=== PATIENT | female | born 1975 | race African-American/Black ===

== ENCOUNTER 2016-12-15 22:31 | Inpatient (IN) | payer OTHER ==
[~2016-12-15] VITALS: Ht 160 cm; Wt 79.4 kg
--- NOTE | ~2016-12-15 | EKG ---
[address] [place] [employer] [address] ELECTROCARDIOGRAM REPORT [facility] Room #: 212-P ADM IN M.R.#: [id number] Admission: 12/16/16 Attend Phys: Jerad Newton MD Discharge: Date of : 71 Report #: [id number] THIS REPORT FOR: //name// [facility] ED Test Date: 2016-12-15 Test Time: 22:33:04 Pat Name: [facility] Department: Room: [facility] [place][note 2] Gender: F Counsellors: SHARRON : 1975 Requested By: Yessica Keller Order Number: [id number] MD: Dimas Lindsey Measurements Intervals [place] Rate: 93 P: 67 DE: 138 QRS: 36 QRSD: 77 T: 29 QT: 339 QTc: 422 Interpretive Statements Sinus arrhythmia No significant abnormality Compared to ECG 10/06/2016 00:10:07 No significant change was found Electronically Signed On 12-16-2016 8:45:06 CDT by Dimas Lindsey [email or web address] <ELECTRONICALLY SIGNED> By: Dimas Lindsey MD, [facility] 12/16/16 0845 32 32 Dimas Lindsey MD, [facility] /EPI
--- NOTE | ~2016-12-15 | D ---
[facility] [place] [address] DISCHARGE SUMMARY Name: ZITA PHILIPPE Room #: 212-P ADM IN M.R.#: [id number] Admission: 12/16/16 Attend Phys: Jerad Newton MD Discharge: Date of : 71 Report #: [id number] THIS REPORT FOR: //name// CC: ANT physician/PCP Jerad Newton DATE OF SERVICE: 12/17/2016 DISCHARGE DIAGNOSES: 1. Chest pain and shoulder pain secondary to previous injury. 2. History of gastroesophageal reflux disease. 3. Recent hysterectomy. CONSULTS: Cardiology. PROCEDURES: She had a Lexiscan done that was low risk for ischemia. HOSPITAL COURSE: The patient is a 41-year-old female with very little past medical history, presented to the ER secondary to left-sided chest pain. Please see details of admission dictated by Dr. Jerad Newton . The patient indicates that she has had this pain since October at which time she was at [facility] and was dropped from her bed in the process of a transfer. She indicates she has had multiple testing and studies done including an MRI. Her main concern is that she thought she was having a heart attack and came in. She had a Lexiscan done with low risk for ischemia. She had ongoing pain and wanted to have cardiology see her. Cardiology also felt that she does not have any cardiac etiology for her chest pain. I recommended that she follow up with her primary care doctor immediately and see ortho outpatient. On exam, her chest pain is reproducible and she indicates that with moving her arm, she has shoulder pain. Otherwise, she denies any other complaints. Nurses report no other problems. DISCHARGE DISPOSITION: To home. DISCHARGE PHYSICAL EXAMINATION: VITAL SIGNS: Temperature 98, pulse 63, blood pressure 131/72, O2 sat 100% on room air. GENERAL: She is awake, alert, answering questions appropriately, in no acute respiratory distress. HEENT: Normocephalic, atraumatic. NECK: Supple. CARDIOVASCULAR: Regular rate and rhythm, no murmurs. She has got reproducible left upper chest pain. No bruising or deformity of her shoulder. LUNGS: Clear to auscultation bilaterally. No crackles or wheeze. ABDOMEN: Soft, no distention or tenderness. EXTREMITIES: No edema. [address] [address] DISCHARGE SUMMARY Name: [facility] Room #: [address] [place] [address] IN M.R.#: [id number] Admission: 12/16/16 Attend Phys: Jerad Newton MD Discharge: Date of : 71 Report #: [id number] NEUROLOGIC: Nonfocal. DISCHARGE MEDICATIONS: She will resume her previous med which is ranitidine at its previous dose. DIET: Regular diet. ACTIVITY: As tolerated. FOLLOWUP: With primary care and possible ortho and eval in a week and to seek immediate medical attention if symptoms worsen or recur or if she has any other significant medical concerns. By: 1145 1230 Ghislaine Chamberlain MD /carley
--- NOTE | ~2016-12-15 | H ---
[facility] [place] [address] HISTORY AND PHYSICAL Name: ZITA PHILIPPE Room #: 212-P ADM IN M.R.#: [id number] Admission: 12/16/16 Attend Phys: Jerad Newton MD Discharge: Date of : 71 Report #: [id number] THIS REPORT FOR: //name// CC: ANT physician/PCP Jerad Newton Primary Care Physician DATE OF SERVICE: 12/16/2016 The patient is admitted on 12/16/2016. CHIEF COMPLAINT: Left-sided chest pain. HISTORY OF PRESENT ILLNESS: This patient is a 41-year-old female. She has had these symptoms start about end of October and she was dropped from the table after the surgery that was in [facility]. She said she has off and on pain, but in the last couple of days, since Thursday, the pain got worse. She has it more in the left upper extremity and chest pain which is pretty much all the time there. She came to the emergency room. She has no history of coronary artery disease. No other therapy or DVT. A repeat CT chest was done in the ER, PE protocol. No PE and her cardiac enzymes have been negative now. The patient's pain described 8/10. No headache. No focal weakness or anything like that. The patient is scheduled for stress test today. PAST MEDICAL HISTORY: She has bronchitis, GERD, EGD in the past and tubal ligation. MEDICATIONS: She is on Norflex. ALLERGIES: IBUPROFEN caused GI upset. SOCIAL HISTORY: No alcohol, no drugs, but she is a smoker and admits to smoking. PAST SURGICAL HISTORY: She had a tubal ligation. REVIEW OF SYSTEMS: I reviewed all the review of systems. They are discussed in the HPI. They were reviewed as negative. Specifically, no eye pain, visual changes or anything. No cough, congestion or fever. No focal weakness. No change in mental status. She denied any abdominal pain, nausea or vomiting. No burning pain on urination with anything hematuria. No rashes. Denied any history of diabetes or thyroid problem. specifically, what she describes this pain is in more left upper extremity. She has had pain and then sometimes, she starts feeling more like a heaviness, but no numbness or tingling or anything like that. No motor weakness or anything like that. Chest pain, what she described, is more on the left chest area, which is pretty much all the [facility] [address] [place] [address] HISTORY AND PHYSICAL Name: ZITA PHILIPPE Room #: 212-P ADM IN [facility].#: [id number] Admission: 12/16/16 Attend Phys: Jerad Newton MD Discharge: Date of : 71 Report #: [id number] time now. Rest of review of systems as described in the HPI. They were reviewed as negative. PHYSICAL EXAMINATION: VITAL SIGNS: Stable. She is afebrile. Pulse 50, respiratory rate 18, blood pressure 109/71 and O2 sat 100% on room air. GENERAL: On exam, she is awake, alert and not in distress. HEENT: Pupils equally round and reactive to light. Extraocular muscles intact. No nystagmus. No pallor, no jaundice. CHEST: Clear. Around the chest area, pain is reproducible with palpation. CARDIOVASCULAR: S1, S2. ABDOMEN: Soft. Bowel sounds present. EXTREMITIES: No edema. NEUROLOGIC: No focal weakness. In the upper extremities, she had tariff clerk equal and symmetrical. On the left shoulder area, she had a good range of motion completely and there is really no focal tenderness or anything like that. SKIN: No rash or cellulitis. No abscess or anything like that. NEUROLOGIC: No focal weakness. LABORATORY DATA: Labs were done in the ER today. CBC: White count 4.4, H and H of 12.9 and 38.5 and platelets 200,000. Chemistry: Sodium 137, potassium 3.5, chloride 102, bicarbonate 26, BUN 5, creatinine 0.8 and glucose 109. AST and ALT are 15 and 23 and alkaline phosphatase is 54. Troponin 0.04 and 0.04, two sets negative. Albumin 4.0. Total protein 8.3. D-dimer was positive. CT angio was done in the ER, which was negative for PE or anything. ASSESSMENT: 1. Chest pain and left upper extremity pain, noncardiac, suggested by history, all that. No PE- CTA - Negative will fu Stress test, we will follow up on that. I do not think there is any fracture or any other shoulder pathologies there. She has good range of motion and no really tender spot. She will followup with a stress test. 2. Tobaccoism. Discussed smoking cessation. PLAN: We will keep under tele area and if the pain still persists, we will get MRI on the shoulder also and try oxycodone for pain. <ELECTRONICALLY SIGNED> By: Jerad Newton MD 12/17/16 0812 1024 1137 Jerad Newton MD /nt
[2016-12-15 22:31] VITALS: BP 157/99
[~2016-12-15 22:31] MED LIST: ACYCLOVIR 200200 MG PO; ALBUTEROL INHAL17 GM IH; AMOXICILLIN 50500 M1 PO; AZITHROMYCIN 2250 MG PO; BUTALB-APAP-CA1 EACH PO; CARAFATE1 GM/10 ML PO; CIPROFLOXACIN500 M1 PO; DARVOCET-N 1001 EACH PO; FLAGYL500 MG PO; FLEXERIL PO; MEDROLDOSEPACK PO; NAPROSYN500 MG PO; NOHOMEMEDICATIONS; NORCO 5-325 TA1 EACH PO; NORFLEX100 MG PO; ONDANSETRON HCL4 M2; ONDANSETRON HCL4 M2 PO; PERCOCET 5-3251 EACH PO; PRILOSEC40 MG PO; PYRIDIUM200 MG PO; RANITIDINE 150150 M1 PO; SERTRALINE HCL50 MG PO; TRAMADOL 50 MG50 MG; TRAMADOL 50 MG50 MG PO; ZANTAC 150MG T150 M1 PO; ZANTAC 150MG T150 MG PO; ZOFRAN ODT4 MG PO; ZOFRAN4 MG PO; ZOLOFT100 MG PO
[2016-12-15] MEDS ORDERED: ZANTAC 150MG T150 MG PO (22:32)
[2016-12-15 23:17] LABS: ABSOLUTE NEUTROPHILS 1.6 thou/uL (1.4-8.2); BASOPHILS 1.4 % (0.0-2.0); EOSINOPHILS 1.2 % (0.0-3.0); HEMATOCRIT 38.5 % (37.0-47.0); HEMOGLOBIN 12.9 gm/dL (12.0-15.0); LYMPHOCYTES 55.5 % (24.0-44.0); MCH 28.2 pg (26.0-34.0); MCHC 33.6 g/dL (28.0-37.0); MONOCYTES 6.6 % (1.0-8.0); PLATELET COUNT 200 thou/uL (150-400); POLYS 35.3 % (36.0-66.0); RBC 4.59 mil/uL (4.20-5.00); WBC 4.4 thou/uL (4.0-11.0)
[2016-12-15 23:31] LABS: ANION GAP 9 mmol/L (7-16); BUN 5 mg/dL (7-18); CALCIUM 8.6 mg/dL (8.5-10.1); CHLORIDE 102 mmol/L (98-107); CO2 26 mmol/L (21-32); CREATININE 0.8 mg/dL (0.6-1.0); GLUCOSE 109 mg/dL (74-106); POTASSIUM 3.5 mmol/L (3.5-5.1); SODIUM 137 mmol/L (136-145)
[2016-12-15 23:33] LABS: MANUAL DIFF NO
[2016-12-15 23:37] LABS: APTT 25.1 Seconds (24.5-32.8); PROTIME 10.5 Seconds (9.3-11.4)
[2016-12-15 23:41] LABS: ALKALINE PHOSPHATASE 54 U/L (46-116); NT-PRO BRAIN NAT PEPTIDE 83 pg/mL (<300); SGOT 15 U/L (15-37); SGPT 23 U/L (30-65); TOTAL BILIRUBIN 0.3 mg/dL (<0.1-1.0); TOTAL PROTEIN 8.3 g/dL (6.4-8.2); TROPONIN-I < 0.04 ng/mL (<0.04-0.07)
[2016-12-16 01:25] VITALS: BP 124/70
[2016-12-16 04:00] VITALS: BP 109/71
[2016-12-16 08:49] VITALS: BP 114/71
[2016-12-16 16:26] VITALS: BP 150/88
[2016-12-16 20:15] VITALS: BP 136/83
[2016-12-16 23:20] VITALS: BP 123/77; BP 139/64
[2016-12-17 03:30] VITALS: BP 112/55
[2016-12-17 07:00] VITALS: BP 122/76
[2016-12-17 11:39] VITALS: BP 131/72
[2016-12-17 12:17] VITALS: BP 131/72
== END 2016-12-17 14:15 | disposition home or self-care (01) | DRG 313 ==
LOC: ER 22:31 → EROBS 12-16 01:20 → 2N 12-16 01:20
PROVIDERS: Emergency Medicine
DX: R07.89 Other chest pain (principal); M25.512 Pain in left shoulder; K21.9 Gastro-esophageal reflux disease without esophagitis; F17.210 Nicotine dependence, cigarettes, uncomplicated; F12.90 Cannabis use, unspecified, uncomplicated; W18.39XD Other fall on same level, subsequent encounter; Z71.6 Tobacco abuse counseling; Z90.710 Acquired absence of both cervix and uterus; Z88.6 Allergy status to analgesic agent; Z79.899 Other long term (current) drug therapy
CPT/HCPCS: 10081

== ENCOUNTER 2017-06-09 22:49 | Emergency (ER) | payer OTHER ==
[~2017-06-09] VITALS: Ht 160 cm; Wt 78.5 kg
--- NOTE | ~2017-06-09 | EKG ---
[address] [address] ELECTROCARDIOGRAM [facility]PORT [facility] Room #: DEP Reynaldo#: [id number] Admission: 06/09/17 Attend Phys: Discharge: 06/10/17 Date of : 71 Report #: [id number] THIS REPORT FOR: //name// [facility] ED Test Date: 2017-06-10 Test Time: 01:26:47 Pat Name: [facility] Department: Room: Gender: F Medical Technologist Chemistry: CLAUDE : 1975 Requested By: Arnulfo Richardson Order Number: [id number] MD: Dwight Calderon Measurements Intervals [place] Rate: 51 P: 35 NM: 151 QRS: 42 QRSD: 122 T: 45 QT: 427 QTc: 394 Interpretive Statements Sinus rhythm Electronically Signed On 06-10-2017 20:09:49 CDT by Dwight Calderon [email or web address] <ELECTRONICALLY SIGNED> By: Dwight Calderon MD 06/10/172008 0126 0126 Dwight Calderon MD /EPI
[2017-06-09] MEDS ORDERED: ZANAFLEX4 MG PO (23:07)
[2017-06-09] MEDS ORDERED: PREDNISONE 20 M20 MG PO (23:08)
[2017-06-09 23:34] LABS: URINE BILIRUBIN NEGATIVE (Negative); URINE BLOOD NEGATIVE (Negative); URINE COLOR YELLOW; URINE GLUCOSE-RANDOM* NEGATIVE (Negative); URINE KETONES NEGATIVE (Negative); URINE LEUKOCYTES-REFLEX NEGATIVE (Negative); URINE PROTEIN (DIPSTICK) NEGATIVE (Negative); URINE SPECIFIC GRAVITY 1.015 (1.003-1.035); URINE UROBILINOGEN 0.2 E.U./dl (0.2-1.0)
[2017-06-09 23:47] LABS: HEMOGLOBIN 12.5 gm/dL (12.0-15.0); MCH 29.1 pg (26.0-34.0); MCHC 33.9 g/dL (28.0-37.0); MCV 85.8 fL (80.0-100.0); RBC 4.31 mil/uL (4.20-5.00); RDW 14.6 % (10.5-14.5); WBC 4.8 thou/uL (4.0-11.0)
[2017-06-10 00:07] LABS: ANION GAP 5 mmol/L (7-16); BUN 13 mg/dL (7-18); CALCIUM 9.1 mg/dL (8.5-10.1); CHLORIDE 103 mmol/L (98-107); CO2 30 mmol/L (21-32); CREATININE 0.9 mg/dL (0.6-1.0); GLUCOSE 143 mg/dL (74-106); SODIUM 138 mmol/L (136-145)
[2017-06-10 00:12] LABS: ALBUMIN 3.7 g/dL (3.4-5.0); ALKALINE PHOSPHATASE 62 U/L (46-116); SGOT 7 U/L (15-37); SGPT 14 U/L (30-65); TOTAL BILIRUBIN < 0.1 mg/dL (<0.1-1.0); TOTAL PROTEIN 7.2 g/dL (6.4-8.2)
== END 2017-06-10 02:30 | disposition home or self-care (01) ==
LOC: ER 22:49
PROVIDERS: Emergency Medicine
DX: R10.13 Epigastric pain (principal); K21.9 Gastro-esophageal reflux disease without esophagitis; F10.99 Alcohol use, unspecified with unspecified alcohol-induced disorder; Z87.09 Personal history of other diseases of the respiratory system; Z90.711 Acquired absence of uterus with remaining cervical stump; Z88.6 Allergy status to analgesic agent

== ENCOUNTER 2017-06-30 21:05 | Emergency (ER) | payer OTHER ==
[~2017-06-30] VITALS: Ht 160 cm; Wt 78.0 kg
--- NOTE | ~2017-06-30 | EKG ---
[address] [address] ELECTROCARDIOGRAM [facility]PORT 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 Law Instructor: CLAUDE : 1975 Requested By: David Rojo Order Number: [id number] MD: Dwight Calderon Measurements Intervals [place] Rate: 60 P: 23 TN: 163 QRS: 31 QRSD: 85 T: 38 QT: 411 QTc: 411 Interpretive Statements Sinus rhythm ST elev, probable normal early repol pattern Compared to ECG 06/10/2017 01:26:47 ST (T wave) deviation now present Electronically Signed On 07-01-2017 7:31:42 CDT by Dwight Calderon [email or web address] <ELECTRONICALLY SIGNED> By: Dwight Calderon MD 07/01/17 0731 12 12 Dwight Calderon MD /OMEGA
[~2017-06-30 21:05] MED LIST changes: +PREDNISONE 20 M20 MG PO; +ZANAFLEX4 MG PO
== END 2017-06-30 23:10 | disposition home or self-care (01) ==
LOC: ER 21:05
DX: R07.89 Other chest pain (principal); R68.83 Chills (without fever); R07.0 Pain in throat; K21.9 Gastro-esophageal reflux disease without esophagitis; Z90.711 Acquired absence of uterus with remaining cervical stump; Z88.6 Allergy status to analgesic agent; Z87.891 Personal history of nicotine dependence

== ENCOUNTER 2018-06-13 13:05 | Emergency (ER) | payer OTHER ==
[~2018-06-13] VITALS: Ht 160 cm; Wt 95.3 kg
[2018-06-13] MEDS ORDERED: TRAZODONE HCL100 MG PO (13:34)
[2018-06-13] MEDS ORDERED: NEURONTIN100 MG PO (13:34)
[2018-06-13] MEDS ORDERED: ZOLOFT100 MG PO (13:34)
[2018-06-13] MEDS ORDERED: PRILOSEC 10MG C10 MG PO (13:35)
[2018-06-13] MEDS ORDERED: TRAMADOL 50 MG50 MG PO (14:23)
== END 2018-06-13 15:05 | disposition home or self-care (01) ==
LOC: ER 13:05
DX: S40.011A Contusion of right shoulder, initial encounter (principal); S20.221A Contusion of right back wall of thorax, initial encounter; S30.0XXA Contusion of lower back and pelvis, initial encounter; S09.90XA Unspecified injury of head, initial encounter; K21.9 Gastro-esophageal reflux disease without esophagitis; Z90.710 Acquired absence of both cervix and uterus; Z87.891 Personal history of nicotine dependence; Z88.6 Allergy status to analgesic agent; W01.0XXA Fall on same level from slipping, tripping and stumbling without subsequent striking against object, initial encounter; Y93.89 Activity, other specified; Y92.89 Other specified places as the place of occurrence of the external cause; Y99.8 Other external cause status

== ENCOUNTER 2018-12-11 23:13 | Emergency (ER) | payer OTHER ==
[~2018-12-11] VITALS: Ht 160 cm; Wt 95.3 kg
[~2018-12-11 23:13] MED LIST changes: +NEURONTIN100 MG PO; +PRILOSEC 10MG C10 MG PO; +TRAZODONE HCL100 MG PO
[2018-12-12 00:36] LABS: ABSOLUTE NEUTROPHILS 2.3 thou/uL (1.4-8.2); BASOPHILS 0.6 % (0.0-2.0); EOSINOPHILS 0.9 % (0.0-3.0); HEMATOCRIT 39.8 % (37.0-47.0); HEMOGLOBIN 13.5 gm/dL (12.0-15.0); LYMPHOCYTES 43.3 % (24.0-44.0); MCH 28.5 pg (26.0-34.0); MCHC 34.1 g/dL (28.0-37.0); MCV 83.7 fL (80.0-100.0); MONOCYTES 9.4 % (1.0-8.0); PLATELET COUNT 211 thou/uL (150-400); POLYS 45.8 % (36.0-66.0); RBC 4.75 mil/uL (4.20-5.00); RDW 14.6 % (10.5-14.5)
[2018-12-12 00:46] LABS: ANION GAP 14 mmol/L (7-16); BUN 10 mg/dL (7-18); CALCIUM 9.4 mg/dL (8.5-10.1); CHLORIDE 100 mmol/L (98-107); CO2 23 mmol/L (21-32); CREATININE 0.8 mg/dL (0.6-1.0); GLUCOSE 105 mg/dL (74-106); POTASSIUM 3.8 mmol/L (3.5-5.1); SODIUM 137 mmol/L (136-145)
[2018-12-12 00:51] LABS: TROPONIN-I <0.06 ng/mL (<0.06)
[2018-12-12] MEDS ORDERED: ULTRAM 50MG TAB50 MG PO (03:54)
[2018-12-12 04:49] VITALS: BP 142/71
--- NOTE | 2018-12-12 23:45 | EKG ---
[place] [address] [facility] [email or web address] [address] ELECTROCARDIOGRAM REPORT [facility] [id number] ������������������ Admission: 12/11/18 ������������������ Attend Phys: Discharge: 12/12/18 ������������������ Date of : 71 Report #: [id number] ����������������������������������������������������������������� [id number] THIS REPORT FOR: //name// [facility] ED Test Date: 2018-12-11 Test Time: 23:27:05 Pat Name: [facility] Department: Room: Gender: F Supervisor Education: KALLIE : 1975 Requested By: Mary Funez Order Number: [id number] MD: Dick Vasquez Measurements Intervals [place] Rate: 71 P: 38 [place]: 143 QRS: 36 QRSD: 82 T: 31 QT: 361 QTc: 393 Interpretive Statements Sinus rhythm left atrial enlargement baseline wander Nonspecific ST/T wave changes Compared to ECG 06/30/2017 22:13:58 ST (T wave) deviation no longer present Electronically Signed On 12-12-2018 23:45:05 CDT by Dick Vasquez [email or web address] ��������������������������������������������� <ELECTRONICALLY SIGNED> ���������������������������������������� By: Dick Vasquez MD ��������������������������������������������� 12/12/18 2345 2327 26 Dick Vasquez MD /EPI
== END 2018-12-12 04:14 | disposition home or self-care (01) ==
LOC: ER 23:13
PROVIDERS: Emergency Medicine
DX: R07.89 Other chest pain (principal); K21.9 Gastro-esophageal reflux disease without esophagitis; Z90.710 Acquired absence of both cervix and uterus; Z87.891 Personal history of nicotine dependence; Z88.6 Allergy status to analgesic agent

== ENCOUNTER 2019-08-28 19:02 | Emergency (ER) | payer OTHER ==
[~2019-08-28] VITALS: Ht 160 cm; Wt 82.6 kg
[~2019-08-28 19:02] MED LIST changes: +ULTRAM 50MG TAB50 MG PO
[2019-08-28] MEDS ORDERED: HYDROXYZINE HCL25 M2 PO (19:10)
[2019-08-28] MEDS ORDERED: CYMBALTA20 MG PO (19:11)
[2019-08-28] MEDS ORDERED: TRAMADOL 50 MG50 MG PO (20:12)
[2019-08-28] MEDS ORDERED: NORFLEX100 MG PO (20:12)
[2019-08-28 21:25] VITALS: BP 136/87
--- NOTE | 2019-08-30 09:48 | EKG ---
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: SHARRON : 1975 Requested By: Layla Kuo Order Number: [id number] MD: Dimas Lindsey Measurements Intervals [place] Rate: 62 P: 45 [place]: 159 QRS: 34 QRSD: 85 T: 56 QT: 387 QTc: 393 Interpretive Statements Sinus rhythm No significant abnormality Compared to ECG 12/11/2018 23:27:05 no significant change was found Electronically Signed On 08-30-2019 9:48:17 [employer] DEAN by Dimas Lindsey [email or web address] <ELECTRONICALLY SIGNED> By: Dimas Lindsey MD, [facility] 08/30/19 0948 1909 08 Dimas Lindsey MD, FACC /EPI
== END 2019-08-28 21:35 | disposition home or self-care (01) ==
LOC: ER 19:02
DX: S29.012A Strain of muscle and tendon of back wall of thorax, initial encounter (principal); K21.9 Gastro-esophageal reflux disease without esophagitis; F41.9 Anxiety disorder, unspecified; Z88.6 Allergy status to analgesic agent; Z87.891 Personal history of nicotine dependence; X58.XXXA Exposure to other specified factors, initial encounter; Y93.89 Activity, other specified; Y92.89 Other specified places as the place of occurrence of the external cause; Y99.8 Other external cause status

== ENCOUNTER 2020-01-13 23:36 | Emergency (ER) | payer OTHER ==
[~2020-01-13] VITALS: Ht 160 cm; Wt 78.5 kg
[~2020-01-13 23:36] MED LIST changes: +CYMBALTA20 MG PO; +HYDROXYZINE HCL25 M2 PO
[2020-01-13] MEDS ORDERED: DULOXETINE HCL60 MG PO (23:50)
[2020-01-13] MEDS ORDERED: PROAIR HFA8.5 GM INH (23:51)
[2020-01-13] MEDS ORDERED: HYDROXYZINE HCL50 MG PO (23:51)
[2020-01-13] MEDS ORDERED: ACID CONTROLLER20 MG PO (23:51)
[2020-01-13] MEDS ORDERED: NEURONTIN300 MG PO (23:51)
[2020-01-14 02:16] LABS: ABSOLUTE NEUTROPHILS 2.3 thou/uL (1.4-8.2); EOSINOPHILS 0.6 % (0.0-3.0); HEMATOCRIT 40.5 % (37.0-47.0); HEMOGLOBIN 13.4 gm/dL (12.0-15.0); LYMPHOCYTES 45.1 % (24.0-44.0); MCH 27.9 pg (26.0-34.0); MCHC 33.1 g/dL (28.0-37.0); MCV 84.3 fL (80.0-100.0); MONOCYTES 8.9 % (1.0-8.0); PLATELET COUNT 222 thou/uL (150-400); POLYS 44.4 % (36.0-66.0); RDW 15.6 % (10.5-14.5); WBC 5.1 thou/uL (4.0-11.0)
[2020-01-14 02:21] LABS: ANION GAP 13 mmol/L (7-16); BUN 7 mg/dL (7-18); CALCIUM 9.1 mg/dL (8.5-10.1); CHLORIDE 99 mmol/L (98-107); CO2 24 mmol/L (21-32); CREATININE 0.8 mg/dL (0.6-1.0); GLUCOSE 92 mg/dL (74-106); POTASSIUM 3.9 mmol/L (3.5-5.1); SODIUM 136 mmol/L (136-145)
[2020-01-14 02:31] LABS: ALBUMIN 4.2 g/dL (3.4-5.0); LIPASE 154 U/L (73-393); SGOT 15 U/L (15-37); SGPT 19 U/L (30-65); TOTAL BILIRUBIN 0.7 mg/dL (<0.1-1.0); TOTAL PROTEIN 8.4 g/dL (6.4-8.2); TROPONIN-I <0.06 ng/mL (<0.06)
[2020-01-14 02:33] LABS: DIRECT BILIRUBIN < 0.1 mg/dL (<0.1-0.2)
[2020-01-14] MEDS ORDERED: CARAFATE 1 GM TA1 G1 PO (04:18)
[2020-01-14 04:30] VITALS: BP 137/68
--- NOTE | 2020-01-16 07:54 | EKG ---
[facility] [place] [address] ELECTROCARDIOGRAM REPORT Name: [facility] Room #[facility] [id number] Admission: 01/13/20 Attend Phys: Discharge: 01/14/20 Date of : 71 Report #: [id number] THIS REPORT FOR: cc: [facility] - Clinic physician unknown [facility] - Clinic physician unknown Dimas Lindsey MD [facility] ~ THIS REPORT FOR: //name// [facility] ED Test Date: 2020-01-14 Test Time: 01:28:50 Pat Name: [facility] Department: Room: Gender: F Uniform Maker: nova fish : 1975 Requested By: Mary Funez Order Number: [id number] MD: Dimas Lindsey Measurements Intervals [place] Rate: 69 P: 26 [place]: 152 QRS: 32 QRSD: 79 T: 48 QT: 393 QTc: 421 Interpretive Statements Sinus rhythm No significant abnormality Compared to ECG 08/28/2019 19:09:28 No significant changes Electronically Signed On 01-16-2020 7:53:07 CDT by Dimas Lindsey [email or web address] <ELECTRONICALLY SIGNED> By: Dimas Lindsey MD, FACC 01/16/20 0753 0128 0128 Dimas Lindsey MD, [facility] /EPI
== END 2020-01-14 04:30 | disposition home or self-care (01) ==
LOC: ER 23:36
PROVIDERS: Emergency Medicine
DX: R10.9 Unspecified abdominal pain (principal); R07.9 Chest pain, unspecified; R11.0 Nausea; K21.9 Gastro-esophageal reflux disease without esophagitis; Z90.711 Acquired absence of uterus with remaining cervical stump; Z98.51 Tubal ligation status; Z98.890 Other specified postprocedural states; Z79.899 Other long term (current) drug therapy; Z88.8 Allergy status to other drugs, medicaments and biological substances; Z87.891 Personal history of nicotine dependence

== ENCOUNTER 2021-04-04 12:21 | Emergency (ER) | payer OTHER ==
[~2021-04-04] VITALS: Ht 162.6 cm; Wt 81.7 kg
[~2021-04-04 12:21] MED LIST changes: +ACID CONTROLLER20 MG PO; +CARAFATE 1 GM TA1 G1 PO; +DULOXETINE HCL60 MG PO; +HYDROXYZINE HCL50 MG PO; +NEURONTIN300 MG PO; +PROAIR HFA8.5 GM INH
[2021-04-04] MEDS ORDERED: DICLOFENAC SOD100 G1 TOP (13:55)
[2021-04-04 14:17] VITALS: BP 134/84
== END 2021-04-04 14:19 | disposition home or self-care (01) ==
LOC: ER 12:21
DX: M25.512 Pain in left shoulder (principal); K21.9 Gastro-esophageal reflux disease without esophagitis; F41.9 Anxiety disorder, unspecified; Z90.711 Acquired absence of uterus with remaining cervical stump; Z79.899 Other long term (current) drug therapy; Z79.51 Long term (current) use of inhaled steroids; Z88.8 Allergy status to other drugs, medicaments and biological substances; Z87.891 Personal history of nicotine dependence